=== PATIENT | female | born 1955 | race Caucasian/White ===

== ENCOUNTER → 2020-05-04 | Outpatient (CLI) | payer MEDICARE, BC ==
--- NOTE | 2020-05-04 12:39 | KCIC ---
MRI of the lumbar spine without contrast 05/04/2020 CLINICAL HISTORY: Low back pain which radiates down both legs. TECHNIQUE: Unenhanced T1-weighted and T2-weighted sagittal and axial and inversion recovery sagittal images of the lumbar spine were obtained. FINDINGS: Minimal S-shaped curvature of the thoracolumbar spine is seen. Degenerative signal changes are seen involving all of the disks of the lumbar spine. Degenerative signal changes are seen within the marrow surrounding these discs. A 2 cm hemangioma is seen involving the L3 vertebral body.The co nus medullaris is normal morphology, position, and signal characteristics. At the L1-2 disc space there is a mild generalized disc bulge. Superimposed on this disc bulge is a c entral/left paracentral focal disc protrusion. This measures 2 mm in AP diameter. Degenerative change s are seen involving the facet joints bilaterally. These findings do not result in significant centra l spinal canal or neural foraminal stenosis. At the L2-3 disc space there is mild generalized disc bulge. This is eccentric to the left. Degenerat harry changes are seen involving the facet joints bilaterally. There is mild ligamentum flavum hypertro phy bilaterally. These findings do not result in significant central spinal canal or neural foraminal stenosis. At the L3-4 disc space there is a mild to moderate generalized disc bulge. Degenerative changes are s een involving the facet joints bilaterally. There small moderate-sized facet joint effusions bilatera lly. There is mild ligamentum flavum hypertrophy bilaterally. These findings when combined result in moderate central spinal canal stenosis. No neural foraminal stenosis is seen. At the L4-5 disc space there is a moderate generalized disc bulge. Degenerative changes are seen invo lving the facet joints bilaterally. There is moderate ligamentum flavum hypertrophy bilaterally. Smal l facet joint effusions are seen bilaterally. These findings when combined result in severe central s escobar canal stenosis. No neural foraminal stenosis is seen. At the L5-S1 disc space there is a mild generalized disc bulge. Degenerative changes are seen involvi ng the facet joints bilaterally. There is mild ligamentum flavum hypertrophy bilaterally. These findi ngs when combined do not result in significant central spinal canal or neural foraminal stenosis. IMPRESSION: The changes of degenerative disc disease are seen involving the lumbar spine. These findi ngs result in severe central spinal canal stenosis at L4-5 and moderate central spinal canal stenosis at L3-4. No neural foraminal stenosis is seen. Electronically signed by: Tony Lopes MD (05/04/2020 12:37 PM) [id number]
== END ==
LOC: KCIC MRI 10:17
PROVIDERS: ATTEND Physical Medicine & Rehabilitation
DX: M51.37 Other intervertebral disc degeneration, lumbosacral region (principal); M48.07 Spinal stenosis, lumbosacral region
CPT/HCPCS: 72148

== ENCOUNTER → 2020-06-17 | Outpatient (CLI) | payer MEDICARE, BC ==
[~2020-06-17] MED LIST: AMLO-187 PO; ASPI325T8 PO; BUPR150T15 PO; CALC500T54 PO; DOCU-109 PO; DULO20CA PO; HYDR-2759 PO; LOSA100T14 PO; MECL-75 PO; METH-38 PO; MULT-245 PO; OMEP40CA7 PO; ONDA4TAB12 PO; SEMA0.25 SQ; SUCR1TAB35 PO
--- NOTE | 2020-06-17 14:30 | EKG ---
[facility] [address] [place] [address] Test Date: 2020-06-17 Test Time: 14:25:27 Pat Name: LINDSAY MATOS Department: Room: Gender: F Directional Survey Drafter: CONG : 1955 Requested By: ALIYA WRIGHT Order Number: [id number] Reading MD: Sagar Coto Measurements Intervals [place] Rate: 90 P: 37 MO: 176 QRS: 51 QRSD: 88 T: 18 QT: 338 QTc: 417 Interpretive Statements SINUS RHYTHM QRS(T) CONTOUR ABNORMALITY CONSISTENT WITH SEPTAL INFARCT AGE UNDETERMINED ABNORMAL ECG RI6.02 No previous ECG available for comparison Electronically Signed On 06-28-2020 14:48:46 ACCESS REGISTRAR by Sagar Coto
[2020-06-17 14:37] LABS: BASO % 1 % (0-3); EOS # 0.1 x10^3/uL (0.0-0.7); EOS % 1 % (0-3); HEMATOCRIT 42.7 % (36.0-47.0); HEMOGLOBIN 14.4 g/dL (12.0-15.5); LYMPH # 1.1 x10^3/uL (1.0-4.8); LYMPH % 17 % (24-48); MEAN CORPUSCULAR HEMOGLOBIN 31 pg (25-35); MEAN CORPUSCULAR HGB CONC 34 g/dL (31-37); MEAN CORPUSCULAR VOLUME 93 fL (79-100); MONO # 0.4 x10^3/uL (0.0-1.1); MONO % 6 % (0-9); NEUT # 4.9 x10^3/uL (1.8-7.7); NEUT % 76 % (31-73); PLATELET COUNT 232 x10^3/uL (140-400); RED BLOOD COUNT 4.62 x10^6/uL (3.50-5.40); RED CELL DISTRIBUTION WIDTH 13.9 % (11.5-14.5); WHITE BLOOD COUNT 6.5 x10^3/uL (4.0-11.0)
[2020-06-17 14:56] LABS: ALBUMIN 3.5 g/dL (3.4-5.0); CALCIUM 9.3 mg/dL (8.5-10.1); CREATININE 1.1 mg/dL (0.6-1.0); GFR 49.5; POTASSIUM 3.5 mmol/L (3.5-5.1); TOTAL BILIRUBIN 0.6 mg/dL (0.2-1.0); TOTAL PROTEIN 7.1 g/dL (6.4-8.2)
== END ==
LOC: SURGPAT 13:26
PROVIDERS: ATTEND Neurological Surgery
DX: Z01.812 Encounter for preprocedural laboratory examination (principal); Z20.822 Contact with and (suspected) exposure to COVID-19; M48.062 Spinal stenosis, lumbar region with neurogenic claudication; M54.5 Low back pain; R94.31 Abnormal electrocardiogram [ECG] [EKG]
CPT/HCPCS: 80053; 85025; 87641; 93005; U0003

== ENCOUNTER 2020-06-20 06:46 | Day surgery (SDC) | payer MEDICARE, BC ==
--- NOTE | 2020-06-17 14:15 | HP ---
ADMIT DATE: 06/20/2020 PREOPERATIVE HISTORY AND PHYSICAL DATE OF ADMISSION: 06/20/2020. 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 She says that if she stands for any length of time or walks, her legs become heavy and she can fall. She rates her lower back pain as 4/10. Standing and any activity increases her pain. If she walks or leans on a cart, she is able to walk further. If she sits, her back becomes stiff and sore, but sitting does help. Her legs become numb with prolonged walking. She has tried traction, which she said helped her while it was being performed only. She said epidural steroid injections were done a few years ago, which gave her temporary relief. A spinal cord stimulator has been recommended to her. CURRENT MEDICATIONS: Wellbutrin, amlodipine, losartan, aspirin, omeprazole, duloxetine, Tylenol, Mucinex, Tums, vitamin B12. ALLERGIES: LATEX. PAST MEDICAL HISTORY: Arthritis, asthma, hypertension, abdominal wound infection, diverticulitis, fractured ankle. PAST SURGICAL HISTORY: , hysterectomy, cholecystectomy, ruptured diverticula, colon resection with ileostomy, reversal of ileostomy, abdominal wall hernia repair, gastric sleeve. FAMILY HISTORY: Bleeding problems, diabetes, heart disease, hypertension, [place], headaches, spine problems. SOCIAL HISTORY: Retired RN. . Does not smoke, quit smoking more than 10 years ago. Drinks alcohol 1-2 times per year. REVIEW OF SYSTEMS: A 12-point review of systems was performed and is noncontributory except that mentioned above. PHYSICAL EXAMINATION: GENERAL: Alert, pleasant, in no acute distress. HEAD: Normocephalic, atraumatic. SKIN: Warm and dry. MUSCULOSKELETAL: Lumbar paraspinal muscle bulk is normal, restricted range of motion of the lumbar spine, [id number] tenderness of the lower lumbar spine with palpation, normal range of motion of the lower extremities bilaterally. EXTREMITIES: No clubbing, cyanosis or edema. NEUROLOGIC: Alert and oriented x 3, normal recent and remote memory, strength is 5/5 in the lower extremities bilaterally except for 2/5 left foot dorsiflexion, sensory was intact to light touch in the lower extremities bilaterally except for a decrease in sensation in the dorsum of her left foot, reflexes were present and symmetric in the lower extremities bilaterally, negative straight leg raising bilaterally, forward stooped gait using a cane. IMAGING: I reviewed her lumbar MRI scan. There is at least moderate stenosis at multiple levels in the lumbar spine. At L4-L5, she has severe stenosis primarily from severe posterolateral encroachment. ASSESSMENT AND PLAN: She has severe stenosis primarily at L4-L5. My recommendation at this point is to perform a lumbar microsurgery at this level with bilateral hemilaminotomies to fully decompress this region. I spoke with her about the surgery and the risks. She understands. She would like to go ahead. ALIYA WRIGHT MD DR: TERRI/manda JOB#: [id number] / [id number] JENNIFER
[~2020-06-20 06:46] MED LIST changes: +BACITRACIN 50,000 UNIT in IV NORMAL SALINE 1000ML BAG 1,000 ML IRR ONE; -DOCU-109 PO; -HYDR-2759 PO; +HYDROmorphone 2 MG/ML VIAL IVP PRN; +INSULIN LISPRO 100 UNIT/ML 3ML VIAL for OP,RR ONLY. SQ PRN; +IV RINGERS,LACTATED 1000ML 1,000 ML IV SCH; -MECL-75 PO; -METH-38 PO; +MORPHINE SULFATE 2 MG/ML VIAL. IVP PRN; +OMEP40CA45 PO; -OMEP40CA7 PO; -ONDA4TAB12 PO; +PROCHLORPERAZINE 10 MG/2 ML VIAL. IVP PRN; +fentaNYL PF VIAL 100 MCG/2 ML VIAL IVP PRN
[2020-06-20] MEDS ORDERED: THROMBIN TOPICAL 20,000 UNIT SPRAY.SYRN KIT TP ONE (07:01)
[2020-06-20] MEDS ORDERED: KETOROLAC 60 MG/2 ML VIAL. ONE (07:01)
[2020-06-20] MEDS ORDERED: GELATIN SPONGE SIZE 100. ONE (07:01)
[2020-06-20] MEDS ORDERED: BUPIVACAINE-EPI 0.5% 30 ML VIAL KIT. ONE (07:39)
[2020-06-20] MEDS ORDERED: fentaNYL PF VIAL 100 MCG/2 ML VIAL ONE ×2 (08:06→12:43)
[2020-06-20] MEDS ORDERED: ROCURONIUM 50 MG/5 ML VIAL. ONE (08:06)
[2020-06-20] MEDS ORDERED: NEOSTIGMINE METHYLSULFATE 5 MG/5 ML SYRINGE. ONE (08:07)
[2020-06-20] MEDS ORDERED: REMIFENTANIL 1 MG VIAL. IV ONE ×2 (08:07→10:11)
[2020-06-20] MEDS ORDERED: MIDAZOLAM HCL/PF 2 MG/2 ML VIAL. ONE (08:07)
[2020-06-20] MEDS ORDERED: LIDOCAINE 2% PF 5 ML VIAL. ONE (08:08)
[2020-06-20] MEDS ORDERED: ONDANSETRON PF 4 MG/2 ML VIAL. ONE (08:08)
[2020-06-20] MEDS ORDERED: DEXAMETHASONE SOD PHOS 20 MG/5 ML VIAL. ONE (08:08)
[2020-06-20] MEDS ORDERED: PROPOFOL 10 MG/ML (20ML) VIAL. IV ONE (08:08)
[2020-06-20] MEDS ORDERED: ePHEDrine PF IN SALINE 50 MG/10 ML SYRINGE. IV ONE (09:25)
[2020-06-20] MEDS ORDERED: PROPOFOL 50 ML IV ONE ×2 (09:27)
[2020-06-20] MEDS ORDERED: HYDR-2759 PO (12:15)
[2020-06-20] MEDS ORDERED: METH-38 PO (12:15)
[2020-06-20] MEDS ORDERED: DOCU-109 PO (12:15)
--- NOTE | 2020-06-20 12:16 | DISCH ---
DISCHARGE INSTRUCTIONS Condition on Discharge Condition on Discharge: Stable Activity After Discharge Activity Instructions for Disc: Activity as tolerated, Avoid exertion Other activity instructions: no driving for a week Bathing Instructions: Shower-keep dressing dry Lifting Instructions after Dis: No heavy lifting, No pulling or pushing, Do not lift >10 pounds Diet after Discharge Additional Diet Restrictions: resume home diet Wound Incision Care Wound/Incision Care: Ice to area for comfort Other wound/incision instructi: may remove dressing in 48 hors if dry, no soaking Contacting the [facility] after DC Call your doctor for: Concerns you may have Follow-Up Follow up with: Dr. Wright's nurse in 2 weeks [phone] ALIYA WRIGHT MD Jun 20, 2020 12:16
--- NOTE | 2020-06-20 12:18 | OP ---
DATE OF SURGERY: 06/20/2020 PREOPERATIVE DIAGNOSES: Severe lumbar spinal stenosis, L4-L5 with bilateral radicular symptoms, worse on the right. POSTOPERATIVE DIAGNOSES: Severe lumbar spinal stenosis, L4-L5 with bilateral radicular symptoms, worse on the right; synovial cyst, right L4-L5. OPERATION PERFORMED: Bilateral lumbar micro hemilaminotomies with decompression of nerve root at L4-L5 plus a microscopic dissection and removal of synovial cyst, right L4-L5. The operation was done with multimodality monitoring including EMG, SSEP, we used fluoroscopy and microscopic dissection. SURGEON: Jluis Wright M.D. HOLTER SCANNING TECHNICIAN: PHANI Gomez assisted with the surgery. She assisted with the exposure, the microdecompression as well as the closure. OPERATIVE INDICATIONS: The patient is a pleasant 65-year-old who developed intractable back and bilateral leg pain, worse on the right side. On imaging studies, she had the above-mentioned findings. There was a suggestion of a possible small synovial cyst on the right side at L4-L5 preoperatively. At any rate, she failed conservative measures. The symptoms were severe progressive and I recommended surgery. She understood the surgery and the risks and wished to go ahead. DESCRIPTION OF PROCEDURE: Following general endotracheal anesthesia, the patient was positioned prone on the Amauri table. Lumbar region prepped and draped in a standard fashion. DAVID hose and AV impulse boots were applied for DVT prophylaxis. The microscope was draped. Fluoroscopy was draped into the field. Monitoring was established. Ancef 2 grams was given less than 1 hour prior to the initiation of surgery. Using fluoroscopic guidance, an incision was made directly over the L4-L5 interspace. I dissected down through skin and subcutaneous tissue. I opened the lumbodorsal fascia bilaterally and then after creating that exposure, I left a Ray-Cam temporarily on the left side. On the right side, using a 105 mm lumbar micro retractor, I obtained adequate retraction of the right. I brought in the microscope and the remainder of surgery was done with the microscope using microscopic technique. I burred down a very generous hemilaminotomy. The ligamentum flavum was very thickened, I began to peel this away from medial to lateral. It immediately became apparent that there was a synovial cyst and was markedly compressing the nerve at about the level of the disc and as I peeled the ligament away, I worked and I freed this up and then swept the rest away and then performed a partial foraminotomy. I explored carefully, the roots were very well decompressed. I irrigated with antibiotic solution. I did use small amounts of bone wax as well as bipolar cautery. I removed the retractor, obtained hemostasis in the muscle and then switched to the left side and performed the identical operation on the left. On this side, there was no synovial cyst. There was very thickened ligamentum flavum with marked compression and I totally relieved this region and again performed a partial foraminotomy. I irrigated copiously. I worked almost to the midline bilaterally. As I was able to underbite with the exposure. I assured myself of excellent hemostasis in the muscle. I then closed the wound with absorbable sutures and skin was closed with 4-0 subcuticular suture. I felt the surgery went very well. JLUIS WRIGHT MD DR: CAMILO/manda JOB#: [id number] / [id number] JENNIFER
[2020-06-20] MEDS: fentaNYL PF VIAL 100 MCG/2 ML VIAL IVP PRN ×2 (12:46→12:55)
[2020-06-20] MEDS ORDERED: HYDROcodone/APAP 5/325MG 1 TAB TABLET PO ONE ×2 (13:15)
[2020-06-20 13:30] VITALS: BP 164/87
== END 2020-06-20 14:35 | disposition home or self-care (01) ==
LOC: SURG 06:46
PROVIDERS: ATTEND Neurological Surgery
DX: M48.061 Spinal stenosis, lumbar region without neurogenic claudication (principal); I10 Essential (primary) hypertension; J45.909 Unspecified asthma, uncomplicated; K21.9 Gastro-esophageal reflux disease without esophagitis; M19.90 Unspecified osteoarthritis, unspecified site; F32.9 Major depressive disorder, single episode, unspecified; G47.30 Sleep apnea, unspecified; Z90.49 Acquired absence of other specified parts of digestive tract; Z90.710 Acquired absence of both cervix and uterus; Z98.890 Other specified postprocedural states; Z79.899 Other long term (current) drug therapy; Z79.82 Long term (current) use of aspirin; Z87.891 Personal history of nicotine dependence; Z91.040 Latex allergy status; Z88.8 Allergy status to other drugs, medicaments and biological substances
CPT/HCPCS: 63047; 82962; 88304; 88311; 97116; 97162; 97530; J0690; J1100; J1885; J2250; J2405; J2704; J2710; J3010; J3490; J7030; J7120; 76000